=== PATIENT | female | born 1970 | race Caucasian/White ===

== ENCOUNTER → 2016-05-15 | Outpatient (CLI) | payer OTHER ==
[~2016-05-15] MED LIST: ALBUTEROL-200 PUFFS/ IH; BENZONATATE100 MG PO; GABAPENTIN 600600 MG PO; HYCODAN 5MG. TAB5 MG PO; IBUPROFEN800 MG PO; KEFLEX 500MG.500 MG PO; LORTAB 5/500 501 TAB PO; LYRICA 100 MG100 MG PO; LYRICA150 MG PO; NORCO 325 MG-51 TAB PO; PREDNISONE 20MG20 MG PO; PREMARIN 0.60.625 MG PO; PREMARIN1.25 MG PO; TESSALON PERLE100 MG PO; TOPIRAMATE 25MG25 MG PO; ULTRAM50 MG PO
[2016-05-15 09:55] LABS: LYMPH # 1.9 K/mm3 (0.7-4.5); LYMPH % 30.6 % (10-50.0)
[2016-05-15 10:50] LABS: BUN 7 mg/dL (7-18)
[2016-05-15 10:53] LABS: GFR (ESTIMATED) 107 ML/MIN (59-)
== END ==
LOC: LAB 09:44
PROVIDERS: Orthopaedic Surgery
DX: Z01.818 Encounter for other preprocedural examination (principal)

== ENCOUNTER → 2016-07-22 | Outpatient (CLI) | payer OTHER ==
--- NOTE | 2016-07-22 12:08 | RADIOLOGY REPORT PS360 ---
[id number] VIEWS HISTORY: RT SHOULDER PAIN ORDERING PHYSICIAN: HOPE SAUL MD PATIENT AGE: 45 years COMPARISON: 04/29/2016 FINDINGS: Right axillary, supraspinatus, and Grashey views are obtained. There is been overall no significant change in the appearance of the shoulder with hypertrophic changes of the distal clavicle. Cystic lesion is once again noted involving the proximal shaft of the humerus not significant change. There is slight decrease in the glenohumeral joint space. IMPRESSION: No change with no acute finding.
== END ==
LOC: RAD 10:19
DX: M25.511 Pain in right shoulder (principal)

== ENCOUNTER → 2016-10-12 | Outpatient (CLI) | payer OTHER ==
[~2016-10-12] MED LIST changes: +ESTRADIOL1 MG PO; +FLEXERIL10 MG PO; -PREMARIN1.25 MG PO
--- NOTE | 2016-10-13 21:46 | RADIOLOGY REPORT PS360 ---
MRI-C-SPINE W/O, MRI-3D RENDERING/MYELOGRAM HISTORY: CERVICAL PAIN cervical, pain with right shoulder pain one year. Previous neck surgery 2008 Patient Age: 45 years: Female Ordering Physician: DEVORA WEAVER CRNA TECHNIQUE: Sagittal STIR, T1, T2, axial T1 and T2. On 1.5T Siemens wide bore MRI. 3-D MR myelogram image set obtained & performed on MRI workstation. Additional sagittal thin section T2 weighted dataset obtained from this latter acquisition as well (---76 CPT) COMPARISON :CT soft tissue neck 08/24/2013 FINDINGS Cranial cervical junction appears normal. C2/33 appears intact. C3/C4. Cervical spondylosis with diffuse posterior hypertrophic ridging. The mainly hard disc features scant soft tissues protrusion as well as midline. These features effaces thecal sac and flatten the cervical cord, yielding mild central canal stenosis. Foraminal encroachment most evident on the right due to spurring. Been previous anterior discectomy with fusion at C4-5-6-7. This long segment anterior fusion is nicely seen on the previous CT study from 2013. Posteriorly at the C4/5 level is unremarkable. No significant findings here previous CT there is some MRI artifact C5-C6. Again smooth posterior disc margin C6/7. Residual broad-based hard disc midline and to the right. Broad-based hard disc indents the anterior aspect of the thecal sac and encroaches upon the right foramen. Left foramen unremarkable. C7/T1 disc intact T1/T2 disc intact T2/T3 disc intact. 3-D MR myelogram image set demonstrates the anterior indentation upon the thecal sac most evident at C3/4. Mild anterior indentation the thecal sac at C 6/7. IMPRESSION Previous anterior discectomy andfusion at C4-5-6-7. At C6/7 there is posterior ridging, hard disc seen midline and to the right as does efface the anterior aspect of the thecal sac and just abuts upon the cervical cord. Only mild right foraminal encroachment due to spurring to the right also noted. Features here likely stable since 2014 CT soft tissue neck C3/4. Degenerative disc with diffuse posterior hypertrophic ridging. The diffuse disc/osteophyte features here indent the thecal sac and very slightly flatten the cervical cord. Mild central canal stenosis with moderate right foraminal encroachment more so than left. I believe spondylosis features have progressed slightly at this level level since 2014. Mild central canal stenosis has developed at this level Details in text.
== END ==
LOC: RAD 12:59
DX: M54.2 Cervicalgia (principal)